=== PATIENT | female | born 1995 | race Caucasian/White ===

== ENCOUNTER 2017-07-04 09:25 | Emergency (ER) | payer OTHER ==
[~2017-07-04] VITALS: Ht 167.6 cm; Wt 90.0 kg
[~2017-07-04 09:25] MED LIST: MACR100C PO
[2017-07-04 09:27] VITALS: BP 129/82; PULSE 80; RESP 15; TEMP 98.2; O2SAT 98
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
[2017-07-04] MEDS ORDERED: MAPA500T13 PO (09:52)
[2017-07-04] MEDS ORDERED: IBUP-232 PO (09:52)
[2017-07-04] MEDS ORDERED: CYCL1TAB29 PO (09:52)
== END 2017-07-04 10:18 | disposition home or self-care (01) ==
LOC: NEPK 09:25
DX: S39.012A Strain of muscle, fascia and tendon of lower back, initial encounter (principal); V49.49XA Driver injured in collision with other motor vehicles in traffic accident, initial encounter; Y92.410 Unspecified street and highway as the place of occurrence of the external cause; Z72.0 Tobacco use
CPT/HCPCS: 99283

== ENCOUNTER 2017-08-01 04:55 | Emergency (ER) | payer SELFPAY ==
[~2017-08-01] VITALS: Ht 167.6 cm; Wt 90.0 kg
[~2017-08-01 04:55] MED LIST changes: +CYCL1TAB29 PO; +IBUP-232 PO; -MACR100C PO; +MAPA500T13 PO
[2017-08-01 04:56] VITALS: BP 148/77; PULSE 78; RESP 16; TEMP 97.7; O2SAT 98
--- NOTE | 2017-08-01 05:17 | PD ---
HPI Chief Complaint: Headache Time Seen by Provider: 05:04 Travel History International Travel<30 days: No Contact w/Intl Traveler<30days: No Traveled to known affect area: No History of Present Illness HPI The patient is a 21 year old female who presents to the [facility] emergency department with a history of headache that began around 8 PM last night. She reports that the pain gradually built up over time. She reports that the pain is an aching sensation that began in the back of her neck and then moved up to the back of her head. At 3AM, she woke up with worse pain. She reports that the pain has been associated with nausea and vomiting 5 upon awakening at 3 AM. She reports that she also noted some tingling sensations in bilateral upper extremities upon awakening. She denies having any weakness of her extremities. She denies having any tingling at this time. On review of systems, she denies having any recent fevers cough, congestion, neck stiffness, vision changes, chest pain, shortness of breath, abdominal pain, vomiting, diarrhea, urinary symptoms, or other neurologic symptoms. She does however report that over the last 2 years occasionally she will have a pressure behind her right eye. She has been seen in the emergency department regarding as well as by an eye doctor. She reports that no abnormality has been identified. FH: Sister gets headache due to a pituitary headaches and "a cluster of abnormal blood vessels in her brain". PFSH Past Medical History Narrative Medical The patient's past medical history is significant for depression in the past, history of anemia, history of heavy menstrual cycles with placement on oral contraceptive 5 years ago. Hx Anticoagulant Therapy: No Anemia: Yes Autoimmune Disease: No Blood Disorders: Yes ( heavy periods) Depression: Yes (IN THE PAST) Cardiovascular Problems: No Chemotherapy: No Cerebrovascular Accident: No Developmental Delay: No Diabetes: No Diminished Hearing: No Genitourinary: No Musculoskeletal: No Neurologic: No Psychiatric: No Reproductive: Yes (HEAVY PERIODS) Respiratory: No Immunizations Current: Yes ?: Not LMP: 07/26/17 : 0 Past Surgical History Narrative Surgical The patient's past surgical history is significant for appendectomy, bilateral bunionectomy Abdominal Surgery: Yes (04-25-13 lap appy) Appendectomy: Yes (LAP 04/21) Hysterectomy: No Pacemaker: No Other Surgery: Yes (BILAT BUNIONECTOMY) Social History Alcohol Use: No Tobacco Use: Yes (3 CIGS/DAY) Substance Use: No Allergies-Medications (Allergen,Severity, Reaction): Coded Allergies: Sulfa (Sulfonamide Antibiotics) (Unverified Allergy, Severe, 08/01/17) Reported Meds & Prescriptions Reported Meds & Active Scripts Active Phenergan (Promethazine HCl) 25 Mg Tablet 25 Mg PO Q6H PRN Flexeril (Cyclobenzaprine HCl) 10 Mg Tab 10 Mg PO TID Mapap Extra Strength (Acetaminophen) 500 Mg Tab 1,000 Mg PO Q8HR PRN Ibuprofen 600 Mg Tab 600 Mg PO Q6H PRN Review of Systems Except as stated in HPI: all other systems reviewed are Neg General / Constitutional: No: Fever Eyes: No: Visual changes HENT: Positive: Headaches, Neck Pain, No: Neck Stiffness Cardiovascular: No: Chest Pain or Discomfort Respiratory: No: Shortness of Breath Gastrointestinal: Positive: Nausea, Vomiting, No: Abdominal Pain Genitourinary: No: Dysuria Musculoskeletal: No: Pain Skin: No Rash Neurologic: Positive: Headache, Paresthesia, No: Weakness, Focal Abnormalities , Change in Mentation, Sensory Disturbance Psychiatric: No: Depression Endocrine: No: Polydipsia Hematologic/Lymphatic: No: Easy Bruising Physical Exam Narrative General: The patient is a well-developed well-nourished female in no acute distress. Head and Neck exam: Head is normocephalic atraumatic. Eyes: EOMI, pupils are equal round and reactive to light. Nose: Midline septum with pink mucous membranes Mouth: Dentition unremarkable. Moist mucus membranes. Posterior oropharynx is not erythematous. No tonsillar hypertrophy. Uvula midline. Airway patent. Neck: No palpable lymphadenopathy. No nuchal rigidity. No thyromegaly. No nuchal rigidity. Cardiovascular: Regular rate and rhythm without murmurs, gallops, or rubs. Lungs: Clear to auscultation bilaterally. No wheezes, rhonchi, or rales. Abdomen: Soft, without tenderness to palpation in all 4 quadrants of the abdomen. No guarding, rebound, or rigidity. Normal bowel sounds are audible. No tenderness on palpation of McBurney's point. Extremities: No clubbing, cyanosis, or edema. 2+ pulses in all 4 extremities. Back: No spinous process tenderness to palpation. No costovertebral angle tenderness to palpation. Neurologic Exam: Cranial nerves 2-12 were intact on exam. Strength is 5/5 in all 4 extremities. No sensory deficits noted. No dysdiadochokinesis. Good finger to nose and Heel to santos bilaterally. Skin Exam: No rash noted. Intact skin that is warm and dry. Data Data Last Documented VS Vital Signs Date Time Temp Pulse Resp B/P (MAP) Pulse Ox O2 Delivery O2 Flow Rate FiO2 08/01/17 09:35 08/01/17 04:56 97.7 78 16 98 Room Air Orders Orders Complete Blood Count With Diff (08/01/17 05:49) Comprehensive Metabolic Panel (08/01/17 05:49) Prothrombin Time / Inr (Pt) (08/01/17 05:49) Act Partial Throm Time (Ptt) (08/01/17 05:49) Lipase (08/01/17 05:49) Magnesium (Mg) (08/01/17 05:49) Ct Brain W/O Iv Contrast(Rout) (08/01/17 05:49) Iv Access Insert/Monitor (08/01/17 05:49) Ecg Monitoring (08/01/17 05:49) Oximetry (08/01/17 05:49) Ed Urine Pregnancytest Poc (08/01/17 05:49) Cta Brain W Iv Contrast W 3d (08/01/17 ) Sodium Chlor 0.9% 1000 Ml Inj (Ns 1000 M (08/01/17 06:00) Ondansetron Inj (Zofran Inj) (08/01/17 06:00) Morphine Inj (Morphine Inj) (08/01/17 06:00) Cta Neck W Iv Contrast W 3d (08/01/17 ) Iohexol 350 Inj (Omnipaque 350 Inj) (08/01/17 07:22) Ketorolac Inj (Toradol Inj) (08/01/17 08:30) Prochlorperazine Inj (Compazine Inj) (08/01/17 08:30) Diphenhydramine Inj (Benadryl Inj) (08/01/17 08:30) Ed Discharge Order (08/01/17 09:00) Labs Laboratory Tests Test 08/01/17 06:00 White Blood Count 7.6 TH/MM3 Red Blood Count 4.73 MIL/MM3 Hemoglobin 13.7 GM/DL Hematocrit 40.7 % Mean Corpuscular Volume 86.1 FL Mean Corpuscular Hemoglobin 29.0 PG Mean Corpuscular Hemoglobin Concent 33.7 % Red Cell Distribution Width 12.3 % Platelet Count 181 TH/MM3 Mean Platelet Volume 9.8 FL Neutrophils (%) (Auto) 42.6 % Lymphocytes (%) (Auto) 45.5 % Monocytes (%) (Auto) 7.6 % Eosinophils (%) (Auto) 3.4 % Basophils (%) (Auto) 0.9 % Neutrophils # (Auto) 3.2 TH/MM3 Lymphocytes # (Auto) 3.5 TH/MM3 Monocytes # (Auto) 0.6 TH/MM3 Eosinophils # (Auto) 0.3 TH/MM3 Basophils # (Auto) 0.1 TH/MM3 CBC Comment DIFF FINAL Differential Comment Prothrombin Time 9.4 SEC Prothromb Time International Ratio 0.9 RATIO Activated Partial Thromboplast Time 26.0 SEC Blood Urea Nitrogen 13 MG/DL Creatinine 0.66 MG/DL Random Glucose 92 MG/DL Total Protein 7.2 GM/DL Albumin 3.3 GM/DL Calcium Level 8.7 MG/DL Magnesium Level 2.1 MG/DL Alkaline Phosphatase 53 U/L Aspartate Amino Transf (AST/SGOT) 13 U/L Alanine Aminotransferase (ALT/SGPT) 15 U/L Total Bilirubin 0.2 MG/DL Sodium Level 138 MEQ/L Potassium Level 3.8 MEQ/L Chloride Level 104 MEQ/L Carbon Dioxide Level 25.5 MEQ/L Anion Gap 9 MEQ/L Estimat Glomerular Filtration Rate 113 ML/MIN Lipase 82 U/L MDM Medical Decision Making Medical Screen Exam Complete: Yes Emergency Medical Condition: Yes Medical Record Reviewed: Yes Differential Diagnosis Subarachnoid hemorrhage due to aneurysm, versus AVM malformation, versus mass, versus tension headache, versus migraine headache, versus sinus related headache , versus viral syndrome. Narrative Course During the course of the patients emergency department visit, the patients history, examination, and differential diagnosis were reviewed with the patient. The patient was placed on a gas cutter with oximetry and frequent blood pressure monitoring. The patient had [-] IV access obtained and blood work sent for analysis. The patient was initially provided morphine 4 mg IV for pain, Zofran 4 mg IV for nausea, normal saline 1 L IV fluid bolus. The patients laboratory studies were reviewed and remarkable for a white count of 7.6, hemoglobin 13.7, platelets 181 with 45.5 lymphocytes, CMP is unremarkable, lipase 82, PT 9.4, PTT 26 The patient's radiologic studies are pending at the conclusion of my shift. The patient's case was checked out to the oncoming emergency physician to disposition the patient based on the conclusion of the patient's workup. Diagnosis Primary Impression: Headache Qualified Codes: R51 - Headache Scripts Promethazine (Phenergan) 25 Mg Tablet 25 MG PO Q6H Y for MIGRAINE HEADACHE, #15 TAB 0 Refills Prov: Johnathan Steiner MD 08/01/17 hSannan Bentley MD Aug 01, 2017 05:17
[2017-08-01] MEDS ORDERED: MORPHINE SULFATE 4 MG/ML INJ IV PUSH ONE (06:00)
[2017-08-01] MEDS ORDERED: ONDANSETRON HCL 4 MG/2 ML VIAL IV ONE (06:00)
[2017-08-01] MEDS ORDERED: SODIUM CHLOR 0.9% 1000 ML INJ 1,000 ML IV ONE (06:00)
[2017-08-01 06:07] LABS: AUTOMATED NEUTROPHIL # 3.2 TH/MM3 (1.8-7.7); BASOPHIL # 0.1 TH/MM3 (0-0.2); BASOPHIL % 0.9 % (0.0-2.0); EOSINOPHIL # 0.3 TH/MM3 (0-0.4); EOSINOPHIL % 3.4 % (0.0-4.0); HEMATOCRIT 40.7 % (35.0-46.0); HEMOGLOBIN 13.7 GM/DL (11.6-15.3); LYMPH % 45.5 % (9.0-44.0); LYMPHOCYTE # 3.5 TH/MM3 (1.0-4.8); MEAN CELL VOLUME 86.1 FL (80.0-100.0); MEAN CORPUSCULAR HGB CONC 33.7 % (32.0-36.0); MEAN PLATELET VOLUME 9.8 FL (7.0-11.0); MONO % 7.6 % (0.0-8.0); MONOCYTE # 0.6 TH/MM3 (0-0.9); NEUT % 42.6 % (16.0-70.0); PLATELET COUNT 181 TH/MM3 (150-450); RED BLOOD COUNT 4.73 MIL/MM3 (4.00-5.30); RED CELL DISTRIBUTION WIDTH 12.3 % (11.6-17.2); WHITE BLOOD COUNT 7.6 TH/MM3 (4.0-11.0)
[2017-08-01 06:20] LABS: INTERNATIONAL NORMALIZED RATIO 0.9 RATIO; PROTHROMBIN TIME - PATIENT 9.4 SEC (9.8-11.6)
[2017-08-01 06:37] LABS: ALBUMIN 3.3 GM/DL (3.4-5.0); AST (GOT) 13 U/L (15-37); BICARBONATE 25.5 MEQ/L (21.0-32.0); BLOOD UREA NITROGEN 13 MG/DL (7-18); CALCIUM 8.7 MG/DL (8.5-10.1); CHLORIDE 104 MEQ/L (98-107); CREATININE 0.66 MG/DL (0.50-1.00); GLOMERULAR FILTRATION RATE 113 ML/MIN (>89); GLUCOSE,RANDOM 92 MG/DL (74-106); LIPASE 82 U/L (73-393); MAGNESIUM 2.1 MG/DL (1.5-2.5); SODIUM (NA) 138 MEQ/L (136-145)
[2017-08-01 06:39] LABS: ALT (GPT) 15 U/L (10-53)
[2017-08-01 06:41] LABS: ALKALINE PHOSPHATASE 53 U/L (45-117); TOTAL BILIRUBIN ADULT 0.2 MG/DL (0.2-1.0); TOTAL PROTEIN 7.2 GM/DL (6.4-8.2)
[2017-08-01] MEDS ORDERED: IOHEXOL 350 MG/ML 10 ML VIAL (for RAD DIAG) IVCONTRAST ONE (07:22)
--- NOTE | 2017-08-01 07:25 | RADRPT ---
EXAM DATE/TIME: 08/01/2017 07:12 [facility] COMPARISON: No previous studies available for comparison. INDICATIONS : Migraine for 12 hours with vomiting, family history of aneurysm RADIATION DOSE: 30.34 CTDIvol (mGy) MEDICAL HISTORY : None SURGICAL HISTORY : Appendectomy. ENCOUNTER: Initial ACUITY: 1 day PAIN SCALE: 9/10 LOCATION: cranial TECHNIQUE: Multiple contiguous axial images were obtained of the head. Using automated exposure control and adj ustment of the mA and/or kV according to patient size, radiation dose was kept as low as reasonably a chievable to obtain optimal diagnostic quality images. DICOM format image data is available electro nically for review and comparison. FINDINGS: CEREBRUM: The ventricles are normal for age. No evidence of midline shift, mass lesion, hemorrhage or acute in farction. No extra-axial fluid collections are seen. POSTERIOR FOSSA: The cerebellum and brainstem are intact. The 4th ventricle is midline. The cerebellopontine angle i s unremarkable. EXTRACRANIAL: The visualized portion of the orbits is intact. SKULL: The calvaria is intact. No evidence of skull fracture. CONCLUSION: 1. No acute intracranial abnormality. Isaac De Leon MD on August 01, 2017 at 7:22 Board Certified Radiologist. This report was verified electronically.
--- NOTE | 2017-08-01 07:54 | RADRPT ---
EXAM DATE/TIME: 08/01/2017 07:12 [facility] COMPARISON: No previous studies available for comparison. INDICATIONS : Migraine for 12 hours with vomiting, family history of aneurysm IV CONTRAST: 75 cc Omnipaque 350 (iohexol) IV ; Cumulative dose for multiple exams. RADIATION DOSE: 25.52 CTDIvol (mGy) ; Combined studies MEDICAL HISTORY : None SURGICAL HISTORY : Appendectomy. ENCOUNTER: Initial ACUITY: 1 day PAIN SCALE: 6/10 LOCATION: cranial TECHNIQUE: Volumetric scanning was performed using a multi-row detector CT scanner. The data was post processed with a variety of visualization algorithms including full volume maximum intensity projection, multi -planar sliding thin slab reformation, curved planar reformation, and surface rendering techniques. Using automated exposure control and adjustment of the mA and/or kV according to patient size, radiat ion dose was kept as low as reasonably achievable to obtain optimal diagnostic quality images. DICO M format image data is available electronically for review and comparison. FINDINGS: Anterior circulation: Distal intracranial internal carotid arteries are patent with flow extending to the middle and anteri or cerebral arteries. There is no evidence for aneurysm, vessel truncation or stenosis, and no eviden ce for vascular malformation. Posterior circulation: Symmetric distal vertebral arteries with flow extending to basilar artery. There is no evidence for aneurysm, vessel truncation or stenosis, and no evidence for vascular malformation. CONCLUSION: 1. Unremarkable head CTA examination. Specifically, no evidence for aneurysm as questioned. Isaac De Leon MD on August 01, 2017 at 7:49 Board Certified Radiologist. This report was verified electronically.
--- NOTE | 2017-08-01 07:57 | RADRPT ---
EXAM DATE/TIME: 08/01/2017 07:12 [facility] COMPARISON: No previous studies available for comparison. INDICATIONS : Migraine for 12 hours with vomiting, family history of aneurysm IV CONTRAST: 75 cc Omnipaque 350 (iohexol) IV ; Cumulative dose for multiple exams. RADIATION DOSE: 25.52 CTDIvol (mGy) ; Combined studies MEDICAL HISTORY : None SURGICAL HISTORY : Appendectomy. ENCOUNTER: Initial ACUITY: 1 day PAIN SCALE: 6/10 LOCATION: neck Elevated flow velocities and ICA/CCA ratios have been found to correlate with increased degrees of vessel stenosis, calculated as percentage of diameter relative to a normal segment of distal ICA/CCA. TECHNIQUE: Volumetric scanning was performed using a multirow detector CT scanner. The data was post processed with a variety of visualization algorithms including full-volume maximum intensity projection, multip lanar sliding thin-slab reformation, curved-planar reformation, and surface-rendering techniques. Us ing automated exposure control and adjustment of the mA and/or kV according to patient size, radiatio n dose was kept as low as reasonably achievable to obtain optimal diagnostic quality images. DICOM f ormat image data is available electronically for review and comparison. FINDINGS: AORTIC ARCH: There is a three-vessel origin of the great vessels from the aorta. No evidence of ostial narrowing. RIGHT CAROTID: The common carotid artery is intact. The carotid bulb has a normal configuration without ulceration o r narrowing. The internal carotid artery lumen is smooth without stenosis. The external carotid arturo ry is intact. LEFT CAROTID: The common carotid artery is intact. The carotid bulb has a normal configuration without ulceration or narrowing. The internal carotid artery lumen is smooth without stenosis. The external carotid ar angel luis is intact. VERTEBRALS: The vertebral arteries have a symmetric diameter. No stenotic lesions are seen. CONCLUSION: 1. Normal carotid CTA examination. Isaac De Leon MD on August 01, 2017 at 7:53 Board Certified Radiologist. This report was verified electronically.
[2017-08-01] MEDS ORDERED: KETOROLAC TROMETHAMINE 30 MG/ML (IVP) VIAL IVP ONE (08:30)
[2017-08-01] MEDS ORDERED: PROCHLORPERAZINE INJ 10 MG/2 ML VIAL IVP ONE (08:30)
[2017-08-01] MEDS ORDERED: diphenhydrAMINE HCL 50 MG/ML VIAL IVP ONE (08:30)
[2017-08-01] MEDS ORDERED: PROM25TA10 PO (08:59)
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
== END 2017-08-01 09:45 | disposition home or self-care (01) ==
LOC: NEPC 04:55
DX: Z72.0 Tobacco use (principal); R51 Headache; D64.9 Anemia, unspecified; Z79.899 Other long term (current) drug therapy
CPT/HCPCS: 70450; 70496; 70498; 80053; 83690; 83735; 84703; 85025; 85610; 85730; 96361; 96374; 96375; 99285; J0780; J1200; J1885; J2270; J2405; J7030; Q9967

== ENCOUNTER 2017-08-13 14:28 | Emergency (ER) | payer OTHER ==
[~2017-08-13] VITALS: Ht 167.6 cm; Wt 95.0 kg
[~2017-08-13 14:28] MED LIST changes: +CYCL10TA PO; -CYCL1TAB29 PO; +PROM25TA10 PO
[2017-08-13 14:40] VITALS: BP 122/64; PULSE 80; RESP 16; TEMP 97.7; TEMP 98.2; O2SAT 100
[2017-08-13] MEDS ORDERED: KETOROLAC TROMETHAMINE 60 MG/2 ML (IM) VIAL IM ONE (15:00)
[2017-08-13] MEDS ORDERED: TIZA4CAP3 PO (15:01)
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
== END 2017-08-13 15:30 | disposition home or self-care (01) ==
LOC: PHEFT 14:28
DX: M54.41 Lumbago with sciatica, right side (principal); F17.210 Nicotine dependence, cigarettes, uncomplicated
CPT/HCPCS: 96372; 99284; J1885

== ENCOUNTER 2017-12-21 21:54 | Emergency (ER) | payer OTHER ==
[~2017-12-21] VITALS: Ht 167.6 cm; Wt 94.8 kg
[~2017-12-21 21:54] MED LIST changes: +TIZA4CAP3 PO
[2017-12-21 22:26] VITALS: BP 143/75; PULSE 130; RESP 18; TEMP 102.3; O2SAT 100
--- NOTE | 2017-12-22 00:05 | PD ---
HPI Chief Complaint: Fever Time Seen by Provider: 00:02 Travel History International Travel<30 days: No Contact w/Intl Traveler<30days: No Traveled to known affect area: No History of Present Illness HPI Patient has developed sore throat, body aches, fever, over the last day or so. Patient denies any sick contacts. Patient denies any alleviating or aggravating factors. Patient denies any associated factors such as rash, chest pain, back pain, headache, abdominal pain, nausea, vomiting, or diarrhea. Patient states allergy to sulfa Past medical history significant for appendectomy, fibroids, depression, anemia , social smoker of 1-2 cigarettes a day PFSH Past Medical History Hx Anticoagulant Therapy: No Anemia: Yes Autoimmune Disease: No Blood Disorders: Yes ( heavy periods) Depression: Yes (IN THE PAST) Cardiovascular Problems: No Chemotherapy: No Cerebrovascular Accident: No Developmental Delay: No Diabetes: No Diminished Hearing: No Genitourinary: No Musculoskeletal: No Neurologic: No Psychiatric: No Reproductive: Yes (HEAVY PERIODS) Respiratory: No Immunizations Current: Yes Tetanus Vaccination: < 5 Years Influenza Vaccination: No ?: Unknown LMP: 12/14/17 : 0 Past Surgical History Abdominal Surgery: Yes (04-25- lap appy) Appendectomy: Yes (LAP 04/21) Hysterectomy: No Pacemaker: No Other Surgery: Yes (BILAT BUNIONECTOMY) Social History Alcohol Use: Yes (SOCIALLY) Tobacco Use: Yes (STATES 1-2 CIGARETTES) Substance Use: No Allergies-Medications (Allergen,Severity, Reaction): Coded Allergies: Sulfa (Sulfonamide Antibiotics) (Unverified Allergy, Severe, 12/21/17) Reported Meds & Prescriptions Reported Meds & Active Scripts Active Tizanidine (Tizanidine HCl) 4 Mg Cap 4 Mg PO TID Phenergan (Promethazine HCl) 25 Mg Tablet 25 Mg PO Q6H PRN Flexeril (Cyclobenzaprine HCl) 10 Mg Tab 10 Mg PO TID Mapap Extra Strength (Acetaminophen) 500 Mg Tab 1,000 Mg PO Q8HR PRN Ibuprofen 600 Mg Tab 600 Mg PO Q6H PRN Review of Systems General / Constitutional: Positive: Fever, Chills Eyes: No: Visual changes HENT: Positive: Sore Throat Cardiovascular: No: Chest Pain or Discomfort Respiratory: No: Shortness of Breath Gastrointestinal: No: Abdominal Pain Genitourinary: No: Dysuria Musculoskeletal: No: Pain Skin: No Rash Neurologic: No: Weakness Psychiatric: No: Depression Endocrine: No: Polydipsia Hematologic/Lymphatic: No: Easy Bruising Physical Exam Narrative GENERAL: SKIN: Warm and dry. HEAD: Atraumatic. Normocephalic. EYES: Pupils equal and round. No scleral icterus. No injection or drainage. ENT: No nasal bleeding or discharge. Mucous membranes pink and moist. Erythematous oropharynx, some slight exudate, anterior positive cervical lymphadenopathy NECK: Trachea midline. No JVD. CARDIOVASCULAR: Regular rate and rhythm. RESPIRATORY: No accessory muscle use. Clear to auscultation. Breath sounds equal bilaterally. GASTROINTESTINAL: Abdomen soft, non-tender, nondistended. MUSCULOSKELETAL: Extremities without clubbing, cyanosis, or edema. No obvious deformities. NEUROLOGICAL: Awake and alert. No obvious cranial nerve deficits. Motor grossly within normal limits. Five out of 5 muscle strength in the arms and legs. Normal speech. PSYCHIATRIC: Appropriate mood and affect; insight and judgment normal. Data Data Last Documented VS Vital Signs Date Time Temp Pulse Resp B/P (MAP) Pulse Ox O2 Delivery O2 Flow Rate FiO2 12/21/17 23:53 100 Room Air 12/21/17 22:26 102.3 130 18 143/75 (97) Orders Orders Group A Rapid Strep Screen (12/22/17 00:10) Influenzae A/B Antigen (12/22/17 00:10) Ketorolac Inj (Toradol Inj) (12/22/17 00:15) Ondansetron Odt (Zofran Odt) (12/22/17 00:15) Strep Culture (Group A) (12/22/17 00:15) Oseltamivir (Tamiflu) (12/22/17 01:45) MDM Medical Decision Making Medical Screen Exam Complete: Yes Emergency Medical Condition: Yes Medical Record Reviewed: Yes Differential Diagnosis Flu versus pneumonia versus UTI versus strep Narrative Course flu test positive Diagnosis Primary Impression: flu Patient Instructions: General Instructions, Influenza (DC) Scripts Ondansetron Odt (Zofran Odt) 4 Mg Tab 4 MG SL Q6HR Y for Nausea/Vomiting, #20 TAB 0 Refills Prov: Dank Bar MD 12/22/[address] (Naproxen EC) 375 Mg Tabdr 375 MG PO BID, #20 TAB 0 Refills Prov: Dank Bar MD 12/22/17 Oseltamivir (Tamiflu) 75 Mg Cap 75 MG PO BID for Mgmt Viral Infection for 10 Days, #20 CAP 0 Refills Prov: Dank Bar MD 12/22/17 Disposition: 01 DISCHARGE HOME Condition: Stable Dank Bar MD Dec 22, 2017 00:05
[2017-12-22] MEDS ORDERED: KETOROLAC TROMETHAMINE 60 MG/2 ML (IM) VIAL IM ONE (00:15)
[2017-12-22] MEDS ORDERED: ONDANSETRON ODT 4 MG TAB PO/SL ONE (00:15)
[2017-12-22] MEDS ORDERED: ZOFR4TAB3 SL (01:39)
[2017-12-22] MEDS ORDERED: OSEL75 PO (01:39)
[2017-12-22] MEDS ORDERED: NAPR375T4 PO (01:39)
[2017-12-22] MEDS ORDERED: OSELTAMIVIR PHOSPHATE 75 MG CAP PO ONE (01:45)
[2017-12-22 02:27] VITALS: BP 132/63; TEMP 99.5
== END 2017-12-22 02:27 | disposition home or self-care (01) ==
LOC: PHED 21:54
DX: J11.1 Influenza due to unidentified influenza virus with other respiratory manifestations (principal)
CPT/HCPCS: 87081; 87804; 87880; 96372; 99284; J1885